=== PATIENT | female | born 1950 | race Caucasian/White ===

== ENCOUNTER 2017-11-02 16:52 | Emergency (ER) | payer MEDICARE, OTHER ==
--- NOTE | 2017-11-02 17:12 | Emergency Department Record ---
History of Present Illness - General Chief complaint: Extremity Problem Stated complaint: PAIN IN LT FOOT AND TOE Time Seen by Provider: 11/02/17 17:05 Source: Patient Mode of Arrival: Ambulatory Limitations: No limitations - History of Present Illness Initial comments: The patient is here due to L foot pain for 2 months. The pain is worse with lying flat and improved with the foot down and walking. She has been having intermittent numbness and tingling to the L foot with the pain. The patient denies any trauma or injury. She did have arterial studies done on the legs 6 weeks ago which demonstrated mod to severe vascular dz to the L foot. Complaint: Extremity pain Onset/Timin -: Month(s) Location: Left, Foot History of Same: No Severity scale (1-10): 10 Quality: Other Consistency: Constant Improves with: Other Worsens with: Nothing Associated Symptoms: Denies other symptoms - Related Data Home Medications Medication Instructions Recorded Confirmed Last Taken Cyclobenzaprine HCl [Flexeril] 10 mg PO TID 11/02/17 11/02/17 Unknown Gabapentin [Neurontin] 300 mg PO TID 11/02/17 11/02/17 Unknown Meloxicam 15 mg PO DAILY 11/02/17 11/02/17 Unknown Allergies Allergy/AdvReac Type Severity Reaction Status Date / Time No Known Drug Allergies Allergy Verified 06/26/15 16:34 Travel Screening - Travel/Exposure Within Last 30 Days Have you traveled within the last 30 days?: No Review of Systems Constitutional: Denies: Chills, Fever Eyes: Denies: Eye discharge ENT: Denies: Congestion Respiratory: Denies: Cough, Dyspnea Past Medical History - SOCIAL HISTORY Smoking Status: Light tobacco smoker (<10/day) Alcohol Use: None Drug Use: None - RESPIRATORY Hx Respiratory Disorders: Yes Hx Asthma: Yes Hx Bronchitis: Yes - CARDIOVASCULAR Hx Cardio Disorders: Yes Hx Heart Attack: Yes (x3) - NEURO Hx Neuro Disorders: No - GI Hx GI Disorders: Yes Hx Reflux: Yes Hx Irritable Bowel: Yes - Hx Genitourinary Disorders: No - ENDOCRINE Hx Endocrine Disorders: No Hx Diabetes: No Hx Thyroid Disease: No - MUSCULOSKELETAL Hx Musculoskeletal Disorders: Yes Hx Arthritis: Yes - PSYCH Hx Psych Problems: No - HEMATOLOGY/ONCOLOGY Hx Hematology/Oncology Disorders: Yes Hx Bruising: Yes Family Medical History Any Significant Family History?: Yes Hx Cancer: Brother/Sister Hx Heart Disease: Father, Mother, Grandparents Physical Exam - General General Appearance: Alert, Oriented x3, Cooperative, No acute distress - Head Head exam: Atraumatic, Normocephalic, Normal inspection - Eye Eye exam: Normal appearance, PERRL - Neck Neck exam: Normal inspection, Full ROM. negative: Tenderness - Respiratory Respiratory exam: Normal lung sounds bilaterally. negative: Respiratory distress - Cardiovascular Cardiovascular Exam: Regular rate, Normal rhythm, Normal heart sounds - GI/Abdominal GI/Abdominal exam: Soft, Normal bowel sounds. negative: Tenderness - Extremities Extremities exam: Full ROM, Tenderness (There is tenderness to the dorsal foot diffusely.), Other (The L foot is very mildy edematous and the toes are slightly cool. There are no palpable pulses to the L foot. The R foot does have palpable DP pulses. ). negative: Normal inspection, Joint swelling, Normal capillary refill (The cap refill to the L foot is 3 seconds. The cap refill is 2 sec in the R foot.) - Back Back exam: Reports: Normal inspection. Denies: Rash noted - Neurological Neurological exam: Alert, Normal gait, Oriented X3. negative: Abnormal gait, Altered, Motor sensory deficit Course - Reevaluation(s) Reevaluation #1: The patient is doing better now after the Morphine. I did discuss the issues with the patient and believe the pain is due to acute on chronic limb ischemia. Presently the patient is having pain and mild numbness but the foot is still slightly warm. I believe the patient would benefit from Heparinization but believe she will need to be admitted to a larger hospital for Vascular Surgery evaluation. The patient chose [facility] so I did discuss the case with Dr. Carmen in the ER and she did accept the patient in an ER to ER transfer. The patient and agree with the plan and will drive directly to the ER at [facility]. 11/02/17 18:13 Medical Decision Making - Management Options MDM Management: Additional Work-up Planned (e.g. ADM/Transfer/OP Study) - Data Complexity MDM Data: Labs Ordered and/or Reviewed, X-Ray Ordered and/or Reviewed, Review and Summary of Old Record Discussed - Lab Data Result diagrams: 11/02/17 17:48 11/02/17 17:48 - Radiology Data Radiology results: Report reviewed (L Foot: Neg for acute changes. Multiple chronic changes.) Disposition Disposition: Transfer Clinical Impression: Vascular insufficiency of limb Disposition: Acute Care Hospital Transfer Transfer To: [facility] Reason For Transfer: Vascular surgery Accepting Physician: Nella Time Discussed w/Accepting Physician: 18:20 Condition: (2) Stable Forms: Patient Portal Access Time of Disposition: 18:20 Quality - Quality Measures Quality Measures: N/A - Blood Pressure Screening View Details: Yes Does Patient Have Any of the Following: No Blood Pressure Classification: Pre-Hypertensive BP Reading Systolic Measurement: 131 Diastolic Measurement: 81 Screening for High Blood Pressure: < Pre-Hypertensive BP, F/U Documented > [ [id number]] Pre-Hypertensive Follow-up Interventions: Referral to alternative/primary care provider.
[2017-11-02 17:25] LABS: BASO % 0.6 % (0-6); EOS % 2.5 % (0-6); GRAN % 63.9 % (47-80); HEMATOCRIT 42.8 % (35.0-47.0); HEMOGLOBIN 13.4 gm/dl (11.6-16.0); LYMPH % 23.5 % (16-45); MEAN CELL VOLUME 97.5 fl (81-97); MEAN CORPUSCULAR HEMOGLOBIN 30.5 pg (27-33); MEAN CORPUSCULAR HGB CONC 31.3 g/dl (32-36); MEAN PLATELET VOLUME 9.6 fl (7.4-10.4); MONO % 9.5 % (0-9); PLATELET COUNT 321 K/uL (130-400); RED BLOOD COUNT 4.39 M/uL (3.80-5.40); RED CELL DISTRIBUTION WIDTH 15.6 % (11.5-14.5); WHITE BLOOD COUNT W/O DIFF 9.7 K/uL (4.2-12.2)
[2017-11-02] MEDS ORDERED: MORPHINE SULFATE 4MG/ML PREFILLED SYRINGE IVP ONE ×2 (17:39→18:13)
[2017-11-02] MEDS ORDERED: ONDANSETRON HCL IV 4 MG/2 ML VIAL IVP ONE (17:40)
[2017-11-02 17:56] LABS: PROTHROMBIN TIME (PATIENT) 10.4 SECONDS (9.5-12.1)
[2017-11-02 17:57] LABS: BILIRUBIN,TOTAL 0.2 mg/dL (0.2-1.0); CREATININE 1.3 mg/dL (0.5-0.9)
[2017-11-02 17:58] LABS: TOTAL PROTEIN 7.1 g/dL (6.6-8.7)
[2017-11-02 18:02] LABS: ALB/GLOB RATIO 1.3 (1.1-1.8)
--- NOTE | 2017-11-04 13:23 | RADIOLOGY REPORT ---
DATE: 11/02/2017 at 5:21 p.m. EXAM: LEFT FOOT. HISTORY: Entire left foot pain for two weeks. Swollen. TECHNIQUE: Three views of the left foot. COMPARISON: None. ENCOUNTER: Initial. FINDINGS: Diffuse osteopenia seen consistent with osteoporosis. There appears to be a small erosion in the head of the second metatarsal which could be a small amount of erosive arthritis at this joint. Minor degenerative arthritis at the first metatarsophalangeal joint. There is a prominent plantar calcaneal spur. IMPRESSION: 1. OSTEOPOROSIS. 2. SMALL FOCAL EROSION IN THE HEAD OF THE SECOND METATARSAL. 3. MINOR DEGENERATIVE ARTHRITIS AT THE FIRST METATARSOPHALANGEAL JOINT. 4. PROMINENT PLANTAR CALCANEAL SPUR. JOB NUMBER: [id number] MTDD
== END 2017-11-02 18:32 | disposition short-term general hospital (02) ==
LOC: ER 16:52
DX: I87.2 Venous insufficiency (chronic) (peripheral) (principal); I25.2 Old myocardial infarction; F17.210 Nicotine dependence, cigarettes, uncomplicated
CPT/HCPCS: 99284 ×2; 96374; 96375; 85025; 85730; 85610; 80053; 73630; J2405; J2274

== ENCOUNTER 2017-11-28 22:52 | Emergency (ER) | payer MEDICARE, OTHER ==
[2017-11-28] MEDS ORDERED: 0.9 % SODIUM CHLORIDE 1000ML 500 ML IV SCH (23:00)
--- NOTE | 2017-11-28 23:06 | Emergency Department Record ---
History of Present Illness - General Chief Complaint: Confusion Stated Complaint: altered loc Time Seen by Provider: 11/28/17 22:59 Source: Patient, Family Mode of Arrival: EMS Limitations: Altered mental status - History of Present Illness Initial Comments: 67 yo female presents to ED for evaluation of fever, productive cough, and confusion this evening. Family reports a history of COPD, on oxygen 2L NC at her baseline. Patient also has a history of CAD s/p bypass as well as recent angioplasty of the left lower extremity due to arterial blockages 1 week ago. SO reports that the patient was taking Lovenox previously, but was told to stop them, denies blood thinner medications at her baseline. MD Complaint: Altered mental status Onset/Timin Severity: Moderate Consistency: Constant Context: COPD Associated Symptoms: Fever/chills Treatments Prior to Arrival: Oxygen - Husam Coma Scale Eye Response: (4) Open spontaneously Motor Response: (6) Obeys commands Verbal Response: (5) Oriented [place] Total: 15 - Related Data Home Medications Medication Instructions Recorded Confirmed Last Taken Atorvastatin Calcium 20 mg PO QHS 11/28/17 11/28/17 Unknown Hydrocodone/Acetaminophen 1 tab PO Q4H PRN 11/28/17 11/28/17 Unknown [Hydrocodone/Acetaminophen 5mg/325mg] Allergies Allergy/AdvReac Type Severity Reaction Status Date / Time No Known Drug Allergies Allergy Verified 06/26/15 16:34 Review of Systems Constitutional: Reports: Fever. Denies: Chills, Malaise, Night sweats Eyes: Denies: Eye discharge, Eye pain ENT: Denies: Congestion, Ear pain, Epistaxis Respiratory: Reports: Cough, Dyspnea Cardiovascular: Reports: Edema. Denies: Palpitations, Paroxysmal nocturnal dyspnea Endocrine: Denies: Fatigue, Heat or cold intolerance Gastrointestinal: Denies: Abdominal pain, Nausea, Vomiting Genitourinary: Denies: Incontinence, Retention Musculoskeletal: Denies: Arthralgia, Back pain Skin: Denies: Bruising, Change in color Neurological: Reports: Confusion. Denies: Abnormal gait, Headache, Seizure Psychiatric: Denies: Anxiety Hematological/Lymphatic: Denies: Anemia, Blood Clots Past Medical History - SOCIAL HISTORY Smoking Status: Light tobacco smoker (<10/day) Drug Use: None - RESPIRATORY Hx Respiratory Disorders: Yes Hx Asthma: Yes Hx Bronchitis: Yes - CARDIOVASCULAR Hx Cardio Disorders: Yes Hx Heart Attack: Yes (x3) - NEURO Hx Neuro Disorders: No - GI Hx GI Disorders: Yes Hx Reflux: Yes Hx Irritable Bowel: Yes - Hx Genitourinary Disorders: No - ENDOCRINE Hx Endocrine Disorders: No Hx Diabetes: No Hx Thyroid Disease: No - MUSCULOSKELETAL Hx Musculoskeletal Disorders: Yes Hx Arthritis: Yes - PSYCH Hx Psych Problems: No - HEMATOLOGY/ONCOLOGY Hx Hematology/Oncology Disorders: Yes Hx Bruising: Yes Family Medical History Hx Cancer: Brother/Sister Hx Heart Disease: Father, Mother, Grandparents Physical Exam - General General Appearance: Alert, Oriented x3, Cooperative, Moderate distress, Other ( [facility], patient was not oriented to city or year.) Limitations: Altered mental status - Head Head exam: Atraumatic, Normocephalic, Normal inspection Head exam detail: negative: Abrasion, Contusion, Watson's sign, General tenderness, Hematoma, Laceration - Eye Eye exam: Normal appearance. negative: Conjunctival injection, Periorbital swelling, Periorbital tenderness, Scleral icterus - ENT Ear exam: negative: Auricular hematoma, Auricular trauma Nasal Exam: negative: Active bleeding, Discharge, Dried blood, Foreign body Mouth exam: negative: Drooling, Laceration, Tongue elevation - Neck Neck exam: Normal inspection. negative: Meningismus, Tenderness - Respiratory Respiratory exam: Other (decreased BS bases bilaterally). negative: Rales, Respiratory distress, Rhonchi, Stridor - Cardiovascular Cardiovascular Exam: Normal rhythm, Normal heart sounds, Tachycardia - GI/Abdominal GI/Abdominal exam: Soft. negative: Rebound, Rigid, Tenderness - Rectal Rectal exam: Deferred - exam: Deferred - Extremities Extremities exam: Pedal edema, Other (Significant lower extremity edema to the LLE compared with the right, necrosis of the left little toe on examination). negative: Calf tenderness - Back Back exam: Denies: CVA tenderness (R), CVA tenderness (L) - Neurological Neurological exam: Alert. negative: Motor sensory deficit - Psychiatric Psychiatric exam: Normal affect, Normal mood - Skin Skin exam: Normal color. negative: Abrasion Type of lesion: negative: abrasion Course Vital Signs 11/28/17 22:56 Pulse Rate [ 115 H Pulse Ox Probe] Respiratory 22 Rate Blood Pressure 109/76 [Right Arm] Pulse Ox 93 L - Reevaluation(s) Reevaluation #1: 11/28/17 23:18 EKG: Sinus tachycardia 114 Normal axis, normal intervals Q waves III, no other acute ST-T wave changes are present Reevaluation #2: 11/28/17 23:27 Initial labs reviewed: WBC 23.2, 90% Neutrophils Hgb 10.2 HCT 32 AG [address] at this time to exclude PE given clinical appearance of the LLE. Reevaluation #3: 11/29/17 00:26 Patient is back from CT imaging Zosyn and Levaquin ordered to infuse, cultures have been obtained. Lactic Acid 1.2. Reevaluation #4: 11/29/17 00:31 Pulse 114, BP 94/50. 2nd Line ordered for antibiotics and IVFs to simultaneously infuse. Reevaluation #5: 11/29/17 01:09 CTA Chest: Enlargement of the pulmonary arteries c/w pulmonary hypertension No PE Atelectasis vs. infiltrate R>L. Will initiate transfer to [facility] for admission to SDU. 11/29/17 01:19 Case was discussed with Dr. Mansfield, will accept transfer for further evaluation. Medical Decision Making - Lab Data Result diagrams: 11/28/17 23:05 11/28/17 23:05 Critical Care Time Critical Care Time: Yes Total Critical Care Time: 45 Critical Care Time: Diagnosis and treatment of sepsis resulting from CAP, exclusion PE, IVF resusitation, BS antibiotic administration, transfer for higher level of care. Disposition Disposition: Transfer Clinical Impression: HCAP (healthcare-associated pneumonia) Sepsis Qualifiers: Sepsis type: sepsis due to unspecified organism Qualified Code(s): A41.9 - Sepsis, unspecified organism Disposition: Acute Care Hospital Transfer Transfer To: [facility] Reason For Transfer: Sepsis, Hypotension Accepting Physician: Shyla Time Discussed w/Accepting Physician: 00:33 Condition: (2) Stable Forms: Patient Portal Access Time of Disposition: 00:33 Quality - Quality Measures Quality Measures: N/A - Blood Pressure Screening Does Patient Have Any of the Following: No Blood Pressure Classification: Normal BP Reading Systolic Measurement: 109 Diastolic Measurement: 76 Screening for High Blood Pressure: < Normal BP, F/U Not Required > [G8783]
[2017-11-28 23:15] LABS: BASO % 0.1 % (0-6); HEMATOCRIT 32.5 % (35.0-47.0); HEMOGLOBIN 10.2 gm/dl (11.6-16.0); LYMPH % 2.1 % (16-45); MEAN CELL VOLUME 97.9 fl (81-97); MEAN CORPUSCULAR HEMOGLOBIN 30.7 pg (27-33); MEAN CORPUSCULAR HGB CONC 31.4 g/dl (32-36); MEAN PLATELET VOLUME 9.3 fl (7.4-10.4); MONO % 7.1 % (0-9); PLATELET COUNT 320 K/uL (130-400); RED BLOOD COUNT 3.32 M/uL (3.80-5.40); RED CELL DISTRIBUTION WIDTH 15.5 % (11.5-14.5)
[2017-11-28] MEDS ORDERED: ACETAMINOPHEN 500 MG TABLET PO ONE (23:17)
[2017-11-28 23:21] LABS: WHITE BLOOD COUNT W/O DIFF 23.4 K/uL (4.2-12.2)
[2017-11-28 23:26] LABS: BLOOD UREA NITROGEN 16 mg/dL (8-23); CREATININE 0.8 mg/dL (0.5-0.9); EST GLOMERULAR FILTRATION RATE > 60 mL/min
[2017-11-28 23:27] LABS: TOTAL PROTEIN 6.2 g/dL (6.6-8.7)
[2017-11-28 23:29] LABS: GLUCOSE,RANDOM 129 mg/dL (74-109)
[2017-11-28 23:32] LABS: ALB/GLOB RATIO 1.1 (1.1-1.8); ALBUMIN 3.3 g/dL (4.0-5.0); ALKALINE PHOSPHATASE 56 U/L (35-104); ALT/SGPT 13 U/L (<33); AST/SGOT 7 U/L (10.0-35.0)
[2017-11-29] MEDS ORDERED: LEVOFLOXACIN 250MG IVPB 250 MG/50 ML BAG IVPB ONE (00:26)
[2017-11-29] MEDS ORDERED: PIPERACILLIN SODIUM/TAZOBACTAM 4.5 GM in 0.9 % SODIUM CHLORIDE 100ML 100 ML IVPB ONE (00:26)
[2017-11-29] MEDS: 0.9 % SODIUM CHLORIDE 1000ML 1,000 ML IV SCH ×2 (00:42→01:45)
[2017-11-29 01:05] LABS: URINE BILIRUBIN NEGATIVE (NEGATIVE); URINE BLOOD NEGATIVE (NEGATIVE); URINE GLUCOSE (UA) NEGATIVE (NEGATIVE); URINE KETONE TRACE (NEGATIVE); URINE LEUKOCYTE ESTERASE SMALL (NEGATIVE); URINE NITRITE NEGATIVE (NEGATIVE); URINE PROTEIN NEGATIVE (NEGATIVE); URINE UROBILINOGEN 0.2 E.U./dL (0.20 - 1.00)
[2017-11-29 01:14] LABS: URINE APPEARANCE CLEAR; URINE COLOR YELLOW; URINE EPITHELIAL CELLS 0 - 2 (FEW); URINE RBC 0 - 2 (NONE SEEN); URINE WBC 0 - 2 (0-2/hpf)
[2017-11-29 01:15] LABS: URINE BACTERIA NONE SEEN; URINE YEAST MODERATE
[2017-11-29] MEDS ORDERED: LEVOFLOXACIN/D5W 750 MG/150 ML BAG IVPB ONE (01:18)
[2017-11-29] MEDS ORDERED: ONDANSETRON HCL IV 4 MG/2 ML VIAL IVP ONE (01:28)
[2017-11-29] MEDS ORDERED: 0.9 % SODIUM CHLORIDE 1000ML 1,000 ML IV SCH (01:45)
--- NOTE | 2017-11-30 13:04 | CT ANGIOGRAM REPORT ---
EXAM: CTA OF THE CHEST HISTORY: HYPOXIA. TECHNIQUE: CTA of the chest was performed following the IV administration of 82 ml of Omnipaque 350 contrast. Axial images were obtained with coronal and sagittal MIP reconstructions. Comparison: None. FINDINGS: The visualized thyroid gland enhances normally. Post surgical changes of the mediastinum. The mediastinal vasculature enhances normally. There is no intraluminal filling defect to suggest pulmonary embolus. Negative for thoracic aortic aneurysm or dissection. The heart and pericardium are unremarkable. No mediastinal or hilar adenopathy. There is a moderate to large hiatal hernia. Limited evaluation of the upper abdomen shows splenic granulomata. The osseous structures are grossly intact. No pneumothorax. There is a moderate degree of respiratory motion artifact which degrades image quality. Minor scarring in the lung bases bilaterally. The lungs are otherwise clear. No effusion. Minor emphysematous change. IMPRESSION: 1. MOTION ARTIFACT DEGRADES IMAGE QUALITY. 2. NO CTA EVIDENCE FOR ACUTE INTRATHORACIC PROCESS. 3. SUBSEGMENTAL ATELECTASIS IN THE LUNG BASES. MODERATE TO LARGE HIATAL HERNIA. 4. MILD EMPHYSEMATOUS CHANGE. JOB NUMBER: [id number] [facility]
== END 2017-11-29 03:13 | disposition short-term general hospital (02) ==
LOC: ER 22:52
DX: A41.9 Sepsis, unspecified organism (principal); J18.9 Pneumonia, unspecified organism; R41.82 Altered mental status, unspecified; I95.9 Hypotension, unspecified; R50.81 Fever presenting with conditions classified elsewhere; J44.9 Chronic obstructive pulmonary disease, unspecified; I25.2 Old myocardial infarction; I25.10 Atherosclerotic heart disease of native coronary artery without angina pectoris; Z95.1 Presence of aortocoronary bypass graft; Z79.01 Long term (current) use of anticoagulants; F17.210 Nicotine dependence, cigarettes, uncomplicated
CPT/HCPCS: 99291 ×2; 96365; 96366; 96361; 96368; 83605; 80053; 81001; 84484; 85027; 71275; 93005; 93010; Q9967; J2405; J1956; J2543; J7030

== ENCOUNTER 2018-05-01 19:03 | Emergency (ER) | payer MEDICARE, OTHER ==
[2018-05-01] MEDS ORDERED: FENTANYL PF 100MCG/2ML VIAL IVP ONE (19:13)
[2018-05-01] MEDS ORDERED: ONDANSETRON HCL IV 4 MG/2 ML VIAL IVP ONE (19:13)
[2018-05-01] MEDS ORDERED: 0.9 % SODIUM CHLORIDE 1000ML 500 ML IV SCH (19:15)
--- NOTE | 2018-05-01 19:19 | Emergency Department Record ---
History of Present Illness - General Chief Complaint: Fall Injury Stated Complaint: FALL Time Seen by Provider: 05/01/18 19:12 Source: Patient, EMS Mode of Arrival: EMS Limitations: No limitations - History of Present Illness Initial Comments: 67 yo female presents to ED for evaluation of a fall while standing on her porch 1 hours ago. Patient reports that she fell onto her left hip resulting in pain symptoms, denies numbness, tingling, or weakness symptoms. Patient was able to stand initially, sat down in a chair but was unable to stand back up due to pain. Patient denies the use of anticoagulation medications, denies injury to the head, neck, chest, abdomen, or back. Patient does report chronic swelling to the LLE at her baseline and previous PAD s/p intervention. MD Complaint: Fall Onset/Timin -: Hour(s) Fall From: Standing When Fall Occurred: 1 hour [employer] Fall Witnessed: Yes, by family Place Fall Occurred: Home Loss of Consciousness: None Prolonged Down Time?: No Symptoms Prior to Fall: None Location: Pelvis Severity: Moderate Quality: Aching Context: Tripped/slipped Associated Symptoms: Denies - Husam Coma Scale Eye Response: (4) Open spontaneously Motor Response: (6) Obeys commands Verbal Response: (5) Oriented [place] Total: 15 - Related Data Home Medications Medication Instructions Recorded Confirmed Last Taken Alendronate Sodium 35 mg PO WEEKLY 05/01/18 05/01/18 04/29/18 Allergies Allergy/AdvReac Type Severity Reaction Status Date / Time No Known Drug Allergies Allergy Verified 06/26/15 16:34 Review of Systems Constitutional: Denies: Chills, Fever, Malaise, Night sweats Eyes: Denies: Eye discharge, Eye pain ENT: Denies: Congestion, Ear pain, Epistaxis Respiratory: Denies: Cough, Dyspnea Cardiovascular: Denies: Chest pain, Dyspnea on exertion Endocrine: Denies: Fatigue, Heat or cold intolerance Gastrointestinal: Denies: Abdominal pain, Nausea, Vomiting Genitourinary: Denies: Incontinence, Retention Musculoskeletal: Reports: Arthralgia. Denies: Back pain, Gout, Joint swelling Skin: Denies: Bruising, Change in color Neurological: Denies: Confusion, Headache, Seizure Psychiatric: Denies: Anxiety, Homicidal thoughts Hematological/Lymphatic: Denies: Blood Clots Past Medical History - SOCIAL HISTORY Smoking Status: Light tobacco smoker (<10/day) Drug Use: None - RESPIRATORY Hx Respiratory Disorders: Yes Hx Asthma: Yes Hx Bronchitis: Yes - CARDIOVASCULAR Hx Cardio Disorders: Yes Hx Heart Attack: Yes (x3) - NEURO Hx Neuro Disorders: No - GI Hx GI Disorders: Yes Hx Reflux: Yes Hx Irritable Bowel: Yes - Hx Genitourinary Disorders: No - ENDOCRINE Hx Endocrine Disorders: No Hx Diabetes: No Hx Thyroid Disease: No - MUSCULOSKELETAL Hx Musculoskeletal Disorders: Yes Hx Arthritis: Yes - PSYCH Hx Psych Problems: No - HEMATOLOGY/ONCOLOGY Hx Hematology/Oncology Disorders: Yes Hx Bruising: Yes Family Medical History Hx Cancer: Brother/Sister Hx Heart Disease: Father, Mother, Grandparents Physical Exam - General General Appearance: Alert, Oriented x3, Cooperative, Moderate distress Limitations: No limitations - Head Head exam: Atraumatic, Normocephalic, Normal inspection Head exam detail: negative: Abrasion, Contusion, Watson's sign, General tenderness, Hematoma, Laceration - Eye Eye exam: Normal appearance. negative: Conjunctival injection, Periorbital swelling, Periorbital tenderness, Scleral icterus - ENT Ear exam: negative: Auricular hematoma, Auricular trauma Nasal Exam: negative: Active bleeding, Discharge, Dried blood, Foreign body Mouth exam: negative: Drooling, Laceration, Muffled voice, Tongue elevation - Neck Neck exam: Normal inspection. negative: Meningismus, Tenderness - Respiratory Respiratory exam: Normal lung sounds bilaterally. negative: Rales, Respiratory distress, Rhonchi, Stridor - Cardiovascular Cardiovascular Exam: Regular rate, Normal rhythm, Normal heart sounds - GI/Abdominal GI/Abdominal exam: Soft. negative: Rebound, Rigid, Tenderness - Rectal Rectal exam: Deferred - exam: Deferred - Extremities Extremities exam: Tenderness (TTP along the proximal lateral left femur, no obvious shortening noted, no pain along the mid-femur/knee region. Diminshed DPP (chronic per patient).). negative: Calf tenderness, Pedal edema - Back Back exam: Denies: CVA tenderness (R), CVA tenderness (L) - Neurological Neurological exam: Alert, Oriented X3 - Psychiatric Psychiatric exam: Normal affect, Normal mood - Skin Skin exam: Normal color. negative: Abrasion Type of lesion: negative: abrasion Course - Reevaluation(s) Reevaluation #1: 05/01/18 20:09 Laboratory studies were reviewed and are grossly unremarkable for an acute process. CT Pelvis: Impacted left femoral neck fracture Patient and her SO were updated on results thus far, request [facility] for transfer. Will initiate transfer at this time for surgical consultation. Reevaluation #2: 05/01/18 20:28 Case was discussed with Dr. Aguilar, will accept transfer for surgical consultation at this time. Medical Decision Making - Lab Data Result diagrams: 05/01/18 19:35 05/01/18 19:35 Disposition Disposition: Transfer Clinical Impression: Femoral neck fracture Qualifiers: Encounter type: initial encounter Fracture type: closed Laterality: left Qualified Code(s): S72.002A - Fracture of unspecified part of neck of left femur , initial encounter for closed fracture Disposition: Acute Care Hospital Transfer Transfer To: [facility] Reason For Transfer: Femoral neck fracture Accepting Physician: Lauren Time Discussed w/Accepting Physician: 20:17 Condition: (2) Stable Forms: Patient Portal Access Time of Disposition: 20:17 Quality - Quality Measures Quality Measures: N/A - Blood Pressure Screening Does Patient Have Any of the Following: Active Dx of HTN Blood Pressure Classification: Hypertensive Reading Systolic Measurement: 164 Diastolic Measurement: 92 Screening for High Blood Pressure: Patient Exclusion, Hx of HTN [G9744]
[2018-05-01 19:51] LABS: HEMATOCRIT 38.6 % (35.0-47.0); HEMOGLOBIN 11.9 gm/dl (11.6-16.0); MEAN CELL VOLUME 94.4 fl (81-97); MEAN CORPUSCULAR HEMOGLOBIN 29.1 pg (27-33); MEAN CORPUSCULAR HGB CONC 30.8 g/dl (32-36); MEAN PLATELET VOLUME 9.4 fl (7.4-10.4); PLATELET COUNT 451 K/uL (130-400); RED BLOOD COUNT 4.09 M/uL (3.80-5.40); RED CELL DISTRIBUTION WIDTH 17.6 % (11.5-14.5)
[2018-05-01 20:05] LABS: BILIRUBIN,TOTAL 0.2 mg/dL (0.2-1.0); CREATININE 1.2 mg/dL (0.5-0.9)
[2018-05-01 20:06] LABS: TOTAL PROTEIN 6.9 g/dL (6.6-8.7)
[2018-05-01 20:07] LABS: PROTHROMBIN TIME (PATIENT) 10.4 SECONDS (9.5-12.1)
[2018-05-01 20:11] LABS: ALB/GLOB RATIO 0.9 (1.1-1.8); ALBUMIN 3.2 g/dL (4.0-5.0)
[2018-05-01 20:23] LABS: ANISOCYTOSIS 1+; PLATELET ESTIMATE INCREASED (NORMAL)
[2018-05-01] MEDS ORDERED: MORPHINE SULFATE 10 MG/ML VIAL IVP ONE (20:32)
== END 2018-05-01 21:02 | disposition short-term general hospital (02) ==
LOC: ER 19:03
DX: S72.002A Fracture of unspecified part of neck of left femur, initial encounter for closed fracture (principal); S80.212A Abrasion, left knee, initial encounter; W17.89XA Other fall from one level to another, initial encounter; Y92.008 Other place in unspecified non-institutional (private) residence as the place of occurrence of the external cause; I25.2 Old myocardial infarction; F17.210 Nicotine dependence, cigarettes, uncomplicated
CPT/HCPCS: 72192; 80053; 85027; 85610; 96374; 96375; 99285; J2270; J2405; J7030